=== PATIENT | male | born 1950 | race Caucasian/White ===

== ENCOUNTER → 2024-02-22 09:31 | Outpatient (REF) | payer MEDICARE, BC, SELFPAY | LOC: MRI 3T 09:31 | PROVIDERS: ATTENDING PHYSICIAN Orthopaedic Surgery; FAMILY PHYSICIAN Internal Medicine | DX: M17.12 Unilateral primary osteoarthritis, left knee (principal); M17.11 Unilateral primary osteoarthritis, right knee | CPT/HCPCS: 70030; 73721 ==

== ENCOUNTER 2024-06-11 08:17 | Inpatient (IN) | payer MEDICARE, BC, SELFPAY ==
[2024-05-22 13:46] VITALS: BMI 33.0
[2024-05-22 14:41] LABS: % Basophils 0.5 % (0-2); % Eosinophils 1.1 % (0-6); % Immature Granulocytes 0.4 % (0-0.5); % Lymphocytes 16.9 % (20.5-51.1); % Neutrophils 68.1 % (42.2-75.2); Absolute Basophils 0.1 10^3/uL (0-0.2); Absolute Eosinophils 0.1 10^3/uL (0-0.7); Absolute Lymphocytes 1.6 10^3/uL (1.2-3.4); Absolute Monocytes 1.2 10^3/uL (0.1-0.6); Absolute Neutrophils 6.3 10^3/uL (1.4-6.5); Hematocrit 44.4 % (39.0-52.0); Hemoglobin 15.1 g/dL (13.0-18.0); Mean Corpuscular Hgb 28.8 pg (27.0-31.0); Mean Corpuscular Volume 84.7 fL (80.0-94.0); Mean Platelet Volume 10.4 fL (7.4-10.4); Nucleated Red Blood Cells % 0 % (-); Platelet Count 272 10^3/uL (130-400); Red Blood Cell Count 5.24 10^6/uL (4.70-6.10); Red Cell Dist. Width 14.9 % (11.5-14.5); White Blood Cell Count 9.3 10^3/uL (4.8-10.8)
[2024-05-22 14:58] LABS: ALT (SGPT) 26 U/L (0-50); AST (SGOT) 20 U/L (17-59); Albumin 4.7 g/dl (3.5-5.0); Alkaline Phosphatase 90 U/L (38-126); Blood Urea Nitrogen 18 mg/dl (9-20); Calcium 10.4 mg/dl (8.4-10.2); Carbon Dioxide 23 mmol/L (22-30); Chloride 102 mmol/L (98-107); Estimated Creatinine Clearance 99 ml/min; Glucose 95 mg/dl (70-99); Potassium 4.8 mmol/L (3.5-5.1); Sodium 137 mmol/L (135-145); Total Bilirubin 0.7 mg/dl (0.2-1.3); Total Protein 7.2 g/dl (6.3-8.2); eGFR > 60.00
[2024-05-23 08:39] LABS: Glycohemoglobin (HgbA1c) 6.1 % (4.0-5.6)
[2024-06-08 11:51] VITALS: BMI 33.0
[2024-06-10 13:20] VITALS: BMI 33.2
[2024-06-10 15:18] LABS: INR 1.19; PT 15.2 Sec (11.4-14.6)
[2024-06-11] VITALS (11 sets, daily range): BP systolic 98–128; BP diastolic 59–96; PULSE 83; O2SAT 93; BMI 33.2
[2024-06-11 08:32] LABS: Glucose - Point of Care 132 mg/dl (70-99)
[2024-06-11] MEDS: TYLENOL 650 MG PO ×5 (08:44→23:18)
[2024-06-11] MEDS: CELEBREX 200 MG PO (08:44)
[2024-06-11 09:11] LABS: INR 1.17
--- NOTE | 2024-06-11 12:37 | OR.RPT ---
Operative Report
Operative Report
Orthopaedic Surgery Operative Note
DATE OF OPERATION: 06/11/2024
PREOPERATIVE DIAGNOSES: Osteoarthritis, left knee.
POSTOPERATIVE DIAGNOSES: Osteoarthritis, left knee.
OPERATION PERFORMED:
1) Left total knee arthroplasty (CPT 27418)
2) Intraosseous administration of analgesic (CPT 76083)
SURGEON: Anderson Todd MD
ASSISTANTS: Quique Malik PA-C who helped with patient and limb positioning and retraction
ANESTHESIA: Spinal by anesthesia plus intraoperative infusion of morphine into the tibial metaphysis by Dr. Todd
COMPLICATIONS: None.
ESTIMATED BLOOD LOSS: 20mL
DRAINS: None
TOURNIQUET TIME: 50 minutes.
IMPLANTS:
- Vesna Persona CR Femur, size 10
- Vesna Persona tibia base plate, size F
- Vesna Persona ultracongruent articular surface, 10 mm
- All-polyethylene patellar component, size 32
- DJO [place] bone cement
INDICATIONS: The patient presented to my office with debilitating left knee pain due to osteoarthritis. We reviewed the natural history of this problem, as well as the risks, benefits, and alternatives of various treatment options. The patient
exhausted all nonoperative treatment options and wished to proceed with knee replacement surgery. The patient understood the risks which included, but were not limited to, bleeding, infection, failure to relieve pain, more pain than preop, damage to
blood vessels and nerves, need for reoperation, mechanical failure of the implants, wound healing problems, stiffness, instability, blood clot, pulmonary embolism, myocardial infarction, pneumonia, arrhythmia, CVA, and . The patient accepted
these risks and wished to proceed. All questions were answered, and informed consent was obtained.
PROCEDURE IN DETAIL: The patient was identified in the preoperative holding area. The left knee was identified as the operative site. The patient was taken in the operating room and placed in a supine position on the operating table. Spinal
anesthesia was performed. IV antibiotics and tranexamic acid were administered. An SCD was placed on the right lower extremity. A well-padded tourniquet was placed on the proximal thigh. All bony prominences were well padded. The left lower
extremity was prepped and draped in the usual sterile fashion.
We performed a surgical time-out. An interarticular block was performed with local anesthetic with epinephrine. The limb was exsanguinated with an Esmarch bandage, then the tourniquet was inflated to 250 mmHg. I performed interosseous administration
of morphine-saline solution via a Jamshidi style intraosseous needle into the proximal medial tibial metaphysis as described by Arik Potter MD. This was performed to aid in pain control. A midline skin incision was made followed by a medial
parapatellar arthrotomy. A subperiosteal peel was performed on the medial tibia. I excised part of the infrapatellar fat pad to improve our visualization as well as tissue over anterior femur. The patella was everted and the knee was flexed. I
excised the remnants of the anterior and posterior cruciate ligaments as well as tibial and femoral osteophytes with rongeurs.
The knee was flexed, and the extramedullary tibial cutting guide was aligned. Cavalier was aligned at neutral, rotation was centered on the tibial tubercle, and coronal alignment was aligned with the mechanical axis of the tibia and center of the ankle
joint. The cut height was 10mm off the lateral tibia joint surface. The guide was secured into place. The MCL and LCL were protected. The tibia surface was cut. The cut surface was inspected after removal to ensure appropriate height and slope based
on the preoperative plan. The cut was checked with a drop dwaine. It was centered nicely at the ankle.
A drill was used to open the femoral canal. The intramedullary distal femoral cutting guide was inserted into the femur. This was set at 5 degrees +0. This was secured into place with three pins. The cut level was checked with an juwan wing. The
distal femur was cut through the cutting guide. The IM guide was reinserted to double check that the level of resection was flush and in appropriate alignment.
Salma's line and the transepicondylar axis were marked on the femur. The femoral sizing guide was applied to the anterior femur. Pins were inserted, and the 4-in-1 cutting guide was applied and secured into place. The rotation was compared to
Fergus's line, the transepicondylar axis, and the neutral tibia cut and was found to be appropriate. The width was checked and found to be appropriate and lateralized on the femur. The anterior, posterior, and chamfur cuts were made. A lamina
varnishing unit tool setter was used to open the flexion gap, and posterior osteophytes were removed with a curved osteotome. The remnant medial and lateral meniscus were also removed. I prophylactically cauterized the lateral geniculate arteries. A 10mm spacer block
was applied to the flexion gap and was noted to be balanced medially and laterally. The knee was extended, and the block showed symmetric to extension and flexion gaps.
The tibia was exposed and sized. Rotation was set in line with the tibial tubercle and congruent with the femur. The trial was secured into place with two pins. The trial femur was impacted into place, and a trial articular surface was placed. The
knee was taken through range of motion and noted to be stable throughout the arc of motion without gaping or excess tension. In extension, a measured resection of the patella was performed. The patella was sized, and lug holes were drilled. A trial
patella component was applied, and it was noted to track centrally throughout the arc of motion without need for further releases.
The trials were removed. The tibia keel was prepared with the punch and the drill. The bone surfaces were irrigated with sterile saline and dried. The cement was mixed in a vacuum mixer. Cement gun was used to apply cement to the tibial surface and
the undersurface of the tibial implant. Cement was pressurized into the tibial canal and tibia surface. The tibial component was impacted into place. Excess cement was removed. Cement was applied to the femoral surface and the femoral component. The
femoral component was impacted into place, and excess cement removed. A trial articular surface was inserted, and the knee was extended while the cement polymerized. The tourniquet was let down, and meticulous hemostasis was achieved. Dilute
betadine was poured into the wound and allowed to soak for 3 minutes. The knee was irrigated with copious normal saline.
Once the cement was polymerized, the trial articular surface was removed. Any excess cement was removed. The knee was trialed, and the final articular surface was selected and inserted into the tibial locking mechanism. The knee was reduced. A fresh
drape was applied to the surgical field.
The arthrotomy was closed with 0-PDS. Once closed, an interarticular block was performed with local anesthetic with epi. The deep dermal layer was closed with 2-0 PDS, and the subcuticular skin was closed with 3-0 monocryl. A Dermabond Prineo
dressing was applied to the skin in full flexion. Once this was completely dry, a sterile waterproof dressing was applied.
The anesthesia team performed an adductor canal block in the OR. The patient awoke from anesthesia without any difficulties. The sponge and instrument counts were correct x2 at the end of the case.
Robert Todd MD
[2024-06-11 12:58] LABS: Glucose - Point of Care 168 mg/dl (70-99)
[2024-06-11] MEDS: ROXICODONE 5 MG PO (13:17)
[2024-06-11] MEDS: NOVOLOG FLEXPEN-MODERATE RESISTANCE SC (13:22)
[2024-06-11] MEDS: NORMOSOL-R/PLASMALYTE-A 1000 IV (13:53)
--- NOTE | 2024-06-11 14:18 | PTCARENOTE ---
Patient received from PACU in bed; IVF infusing; Surgical site assessed with CLINICAL COUNSELOR, left knee mepilex clean, dry, and intact; Bilateral pedal pulses +2 to palpation; Patient reports mild loss of sensation to lower extremities but can wiggle toes,
dorsiflex, and plantarflex; Patient states pain is mild and tolerable; Patient denies nausea/vomiting; Call henderson within reach; Bed in lowest position, wheels locked; Spouse at bedside; Patient and spouse oriented to room and unit; Assessment ongoing
[2024-06-11] MEDS: GLUCOPHAGE 500 MG PO ×2 (14:23→20:41)
[2024-06-11] MEDS: PROTONIX 40 MG PO (14:23)
[2024-06-11] MEDS: FARXIGA 10 MG PO (14:23)
--- NOTE | 2024-06-11 15:23 | W.PN.UPDATE ---
Update Note
Progress Note Update
L knee OA s/p L TKA w/ Dr Todd 06/11/24
DVT prophylaxis - resumption of Warfarin, b/l venous foot pumps
- INRs managed per PCP
HTN - + parameters - monitor BP
CAD/UT s/p CABG 2003 - continue low sodium diet per cardio
- Continue baby ASA
Apical aneurysm w/ intracardiac thrombus � resume Warfarin
NIDDM, A1c 6.1 - monitor BS
- Resume home meds
- + SSI
- Diabetic diet
GERD and Hiatal hernia - continue PPI therapy
BPH - monitor voids
- Resume home Flomax
Hypercholesterolemia
RBBB
s/p MV repair 2003 (at time of CABG)
Colon polyps
Nephrolithiasis
Obesity, BMI 33.2
[2024-06-11 16:27] LABS: Glucose - Point of Care 184 mg/dl (70-99)
[2024-06-11] MEDS: NOVOLOG FLEXPEN-MODERATE RESISTANCE 1 UNITS SC (16:49)
[2024-06-11] MEDS: ANCEF 5 IV (17:00)
[2024-06-11] MEDS: COUMADIN 5 MG PO (17:00)
[2024-06-11] MEDS: COLACE 100 MG PO (20:41)
[2024-06-11] MEDS: SENOKOT 17.2 MG PO (20:41)
[2024-06-11] MEDS: LOPRESSOR 50 MG PO (20:42)
[2024-06-11] MEDS: BACTROBAN 2% OINTMENT 1 APPLIC NASAL (20:47)
[2024-06-11 21:20] LABS: Glucose - Point of Care 187 mg/dl (70-99)
[2024-06-11] MEDS: FLOMAX 0.4 MG PO (21:26)
[2024-06-11] MEDS: LIPITOR 40 MG PO (21:26)
[2024-06-12] MEDS: ANCEF 5 IV (01:24)
[2024-06-12 03:55] VITALS: BP 118/75
[2024-06-12] MEDS: TYLENOL 650 MG PO ×2 (04:04→09:03)
[2024-06-12 05:51] LABS: INR 1.18
[2024-06-12 07:26] LABS: Glucose - Point of Care 124 mg/dl (70-99)
[2024-06-12 07:35] VITALS: BP 125/76
[2024-06-12] MEDS: NOVOLOG FLEXPEN-MODERATE RESISTANCE SC ×2 (08:59→11:47)
[2024-06-12] MEDS: BACTROBAN 2% OINTMENT 1 APPLIC NASAL (09:00)
[2024-06-12] MEDS: GLUCOPHAGE 500 MG PO (09:01)
[2024-06-12] MEDS: SENOKOT 17.2 MG PO (09:01)
[2024-06-12] MEDS: ASPIR LOW (ENTERIC COATED) 81 MG PO (09:01)
[2024-06-12] MEDS: COLACE 100 MG PO (09:01)
[2024-06-12] MEDS: LOPRESSOR 50 MG PO (09:01)
[2024-06-12] MEDS: FARXIGA 10 MG PO (09:01)
[2024-06-12] MEDS: PROTONIX 40 MG PO (09:01)
[2024-06-12] MEDS: NORVASC 5 MG PO (09:01)
[2024-06-12] MEDS: LIDOCAINE 4% PATCH 2 PATCH TOPICAL (09:04)
--- NOTE | 2024-06-12 09:21 | CM ---
Reviewed the chart notes and spoke with the patient at the bedside. The patient anticipates going to outpatient therapy, therefore no home PT needed. The patient resides with his spouse in a [facility] with one step to enter via front
door. The patient has a rolling walker and cane in the home. The patient has had VN in the past, agency name unknown. The patient has been to rehab at [facility]. The patient confirmed his pharmacy of choice is the [facility].
Luke. ELIUD continues to be available to patient/family and is monitoring medical plan for needs at discharge.
Plan: Discharge to home today. The patient's spouse will provide transportation. Patient anticipates going to outpatient therapy.
[2024-06-12 10:06] VITALS: BP 127/72; PULSE 114; O2SAT 99
--- NOTE | 2024-06-12 11:03 | W.PN.ORTHO ---
Today's Communication / Plan
-
D/c today since clinically stable, did well w/ PT and OT.
Assessment
.
Distal Motor Intact: Yes
Dressing:
Clean, dry and intact.
Assessment:
L knee OA s/p L TKA w/ Dr Todd 06/11/24
DVT prophylaxis - resumption of Warfarin, b/l venous foot pumps
- INRs managed per PCP; pt to call PCP and discuss when next INR should be drawn (typically gets it drawn 1x monthly, at end of month)
HTN - + parameters - BPs overall stable
CAD/LA s/p CABG 2003 - continue low sodium diet per cardio
- Continue baby ASA
Apical aneurysm w/ intracardiac thrombus � resumed Warfarin
NIDDM, A1c 6.1 - BS readings overall stable w/ resumption of home meds, diabetic diet, and minimal SSI AC
GERD and Hiatal hernia - continue PPI therapy
BPH - voiding w/ resumption of Flomax
Hypercholesterolemia
RBBB
s/p MV repair 2003 (at time of CABG)
Colon polyps
Nephrolithiasis
Obesity, BMI 33.2
Plan
.
Surgery / Date: L TKA w/ Dr Todd 06/11/24
DVT Prophylaxis: Coumadin
Activity:
Out of bed.
PT/OT
Discharge Plan: Home w/ Outpatient PT
Subjective
.
.:
Patient resting comfortably in bed this AM.
Some trouble sleeping overnight - Baclofen will be ordered HSPRN.
Denies any other new complaints.
Eager for potential d/c today.
Vital Signs and Labs
.
Vital Signs and Labs:
Lab Results
05/22/24 13:45
05/22/24 13:45
Temp Pulse Resp BP Pulse Ox
97.4 F 100 18 125/76 95
06/12/24 07:35 06/12/24 07:35 06/12/24 07:35 06/12/24 07:35 06/12/24 07:35
PT 15.0 Sec (11.4-14.6) H 06/12/24 05:08
INR 1.18 06/12/24 05:08
Non-invasive Hgb result: 13.8
Physical Exam
-
HEENT: No pallor, cyanosis, or jaundice. Throat clear.
NECK: Supple. No JVD.
RESPIRATORY: Lungs clear to auscultation.
CVS: S1, S2 normal. RRR.�
ABDOMEN: Soft, non-tender. No distension. Obese.
EXTREMITIES: Strength equal, no calf pain with palpation/dorsiflexion. Calves soft.
COMMUNITY AMBASSADOR: AOx3. No focal deficits. science liaison grossly intact
--- NOTE | 2024-06-12 11:19 | W.DS.TRANS ---
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
-
Discharge Instructions:
Sleep Apnea Risk Intermediate
Discharge Diagnosis/Procedures L knee OA s/p L TKA w/ Dr Todd 06/11/24
Diet Diabetic, Carb Controlled,Low Sodium
Activity As tolerated,With Walker
Driving Restrictions Not until seen by your Dr
Bathing Restrictions OK to Shower
Blood Work PT/INR as per your primary care physician. Call
your primary care doctor TODAY to discuss when
your first INR should be drawn after discharge.
Other Services PT
Wound Care Leave dressing on until seen by surgeon's office
for follow-up in 2 weeks.
Instructions:
Stand-Alone Forms: Total Hip/Knee Replacement D/C
Changes to Home Medications: Yes
Discharge Medications:
DC Medications w/original date entered in [facility]
aspirin 81 mg capsule 81 mg PO DAILY Blood Clot Prevention/Tx 06/05/24
atorvastatin 40 mg tablet 40 mg PO HS High Cholesterol 06/05/24
empagliflozin 10 mg tablet (Jardiance) 10 mg PO DAILY Diabetes 06/05/24
metformin 500 mg tablet 500 mg PO BID Diabetes 06/05/24
metoprolol tartrate 50 mg tablet 50 mg PO BID Blood Pressure 06/05/24
mupirocin 2 % topical ointment 1 applic topical BID Infection 06/05/24
omeprazole 40 mg capsule,delayed release 40 mg PO DAILY Gastrointestinal Issue 06/05/24
tamsulosin 0.4 mg capsule 0.4 mg PO HS Urinary Issue 06/05/24
vitamin B12 0.5 mg-folic acid 1 mg tablet 1 tab PO DAILY Supplement 06/05/24
warfarin 5 mg tablet 5 mg PO DAILY Blood Clot Prevention/Tx 06/05/24
acetaminophen 500 mg tablet (Tylenol Extra Strength) 1,000 mg (2 x 500 mg) PO Q6H #60 tabs 06/12/24
amlodipine 5 mg tablet 5 mg PO DAILY Blood Pressure #0 tabs 06/12/24
baclofen 5 mg tablet 5 mg PO HSPRN PRN muscle spasms/insomnia #10 tabs 06/12/24
docusate sodium 100 mg capsule 100 mg PO BID #30 caps 06/12/24
lidocaine 4 % topical patch 2 patch topical DAILY #30 ea 06/12/24
losartan 100 mg tablet 100 mg PO DAILY Blood Pressure #0 tabs 06/12/24
ondansetron HCl 4 mg tablet 4 mg PO Q6H PRN nausea and vomiting #30 tabs 06/12/24
oxycodone 5 mg tablet 5 - 10 mg (1 - 2 x 5 mg) PO Q6H PRN moderate-severe pain #30 tabs 06/12/24
sennosides 8.6 mg tablet (Senna Laxative) 17.2 mg (2 x 8.6 mg) PO BID #30 tabs 06/12/24
Home Medication Changes
acetaminophen 500 mg tablet (Tylenol Extra Strength) 1,000 mg (2 x 500 mg) PO Q6H #60 tabs 06/12/24
baclofen 5 mg tablet 5 mg PO HSPRN PRN muscle spasms/insomnia #10 tabs 06/12/24
docusate sodium 100 mg capsule 100 mg PO BID #30 caps 06/12/24
lidocaine 4 % topical patch 2 patch topical DAILY #30 ea 06/12/24
ondansetron HCl 4 mg tablet 4 mg PO Q6H PRN nausea and vomiting #30 tabs 06/12/24
oxycodone 5 mg tablet 5 - 10 mg (1 - 2 x 5 mg) PO Q6H PRN moderate-severe pain #30 tabs 06/12/24
sennosides 8.6 mg tablet (Senna Laxative) 17.2 mg (2 x 8.6 mg) PO BID #30 tabs 06/12/24
Pending Results: No
[2024-06-12] MEDS: ROXICODONE 5 MG PO (11:47)
[2024-06-12 11:49] VITALS: BP 137/79
== END 2024-06-12 12:44 | disposition home or self-care (01) | DRG 470 ==
LOC: 2 SOUTH 08:17
PROVIDERS: Physician Assistant; Physician Assistant Surgical; ADMITTING PHYSICIAN Orthopaedic Surgery; FAMILY PHYSICIAN Internal Medicine; REFERRING PHYSICIAN Internal Medicine Cardiovascular Disease
PROC: 0SRD0J9 Replacement of Left Knee Joint with Synthetic Substitute, Cemented, Open Approach (ICD-10-PCS; 2024-06-11)
DX: M17.12 Unilateral primary osteoarthritis, left knee (principal); I10 Essential (primary) hypertension; I25.2 Old myocardial infarction; I25.10 Atherosclerotic heart disease of native coronary artery without angina pectoris; E11.9 Type 2 diabetes mellitus without complications; K21.9 Gastro-esophageal reflux disease without esophagitis; K44.9 Diaphragmatic hernia without obstruction or gangrene; N40.0 Benign prostatic hyperplasia without lower urinary tract symptoms; E66.9 Obesity, unspecified; E78.00 Pure hypercholesterolemia, unspecified; I45.10 Unspecified right bundle-branch block; Z86.0100 Personal history of colon polyps, unspecified; Z95.1 Presence of aortocoronary bypass graft; Z79.84 Long term (current) use of oral hypoglycemic drugs; Z87.442 Personal history of urinary calculi; Z68.33 Body mass index [BMI] 33.0-33.9, adult; Z79.01 Long term (current) use of anticoagulants
CPT/HCPCS: 36415; 73560; 80053; 82962; 83036; 85025; 85610; 87070; 97110; 97116; 97162; 97166; 97530; C1713; C1776